=== PATIENT | female | born 1960 | race African-American/Black ===

== ENCOUNTER 2018-10-26 14:17 | Emergency (ER) | payer BC ==
[~2018-10-26] VITALS: Ht 167.6 cm; Wt 72.0 kg
[2018-10-26 14:24] VITALS: BP 158/72
== END 2018-10-26 19:44 | disposition left against medical advice (07) ==
LOC: ER 14:17
DX: Z53.21 Procedure and treatment not carried out due to patient leaving prior to being seen by health care provider (principal); Z98.51 Tubal ligation status